=== PATIENT | male | born 1970 | race African-American/Black ===

== ENCOUNTER 2019-08-06 19:29 | Emergency (ER) | payer MEDICAID, OTHER ==
[~2019-08-06] VITALS: Ht 177.8 cm; Wt 129.0 kg
[2019-08-06 19:34] VITALS: BP 142/83
[2019-08-06] MEDS ORDERED: HYDROcodone/acetaminophen 5mg/325mg tablet PO ONE (19:55)
== END 2019-08-06 20:02 | disposition home or self-care (01) ==
LOC: ER 19:30
DX: K43.9 Ventral hernia without obstruction or gangrene (principal); E66.9 Obesity, unspecified; Z98.890 Other specified postprocedural states
CPT/HCPCS: 99283